=== PATIENT | male | born 1960 | race Caucasian/White ===

== ENCOUNTER 2023-03-18 02:14 | Day surgery (SDC) | payer OTHER, SELFPAY ==
[2023-03-09 14:35] VITALS: BMI 35.0
--- NOTE | 2023-03-17 09:07 | PM.HPGS ---
History of Present Illness History of Present Illness Consent: Risks, benefits, and alternatives have been discussed and questions answered. Patient agrees to proceed with procedure. Chief complaint: neoplasm screening Narrative: Israel Burrell is a 62 year old male was last colonoscopy was 10 years ago, is referred for colon cancer screening. Review of Systems Review of Systems: All systems reviewed & are unremarkable except as noted in HPI and below PMFSH Past Medical History Medical History Anxiety Chronic neck pain Depression Dyslipidemia Essential (primary) hypertension Obesity GEORGE (obstructive sleep apnea) Recurrent herpes labialis Surgical History Surgical History History of eye surgery (~1994) Left eye - correction for lazy eye Family History Family History Other Carcinoma of colon Family history of lung cancer Social History Social History Smoking status: Never smoker Second hand tobacco smoke exposure: No Alcohol intake: current Alcohol use details: 1 glass of liquor consumed occansionally Substance use: never Substance use type: does not use Lack of Transportation: No Lack of Food: Never True Current Housing: I Have Housing Concerned About Future Housing: No Difficulty Paying Gas/Electric Bills: No Difficulty Paying for Meds: No Currently Unemployed: No Education: Master's Degree or Higher Difficulty w/ Childcare or Family Care: No Living arrangements: with family Occupation/Education: retired Spiritual care concerns: No Meds Home Medications and Allergies Home Medications Medication Instructions Recorded Confirmed Type valacyclovir 1 gram tablet 2,000 mg PO BID PRN cold sores #30 07/16/21 03/09/23 Rx tabs naproxen 500 mg tablet 500 mg PO BID PRN pain #180 tabs 03/18/22 03/09/23 Rx alprazolam 0.25 mg tablet 0.25 mg PO BID PRN anxiety #180 09/08/22 03/09/23 Rx tabs lisinopril 20 1 tablet PO DAILY #90 tabs 10/26/22 03/09/23 Rx mg-hydrochlorothiazide 25 mg tablet hyoscyamine sulfate 0.125 mg 0.125 mg PO QID PRN dyspepsia #30 12/01/22 03/09/23 Rx sublingual tablet tabs cholecalciferol (vitamin D3) 50 50 mcg PO DAILY #90 tabs 01/24/23 03/09/23 Rx mcg (2,000 unit) tablet paroxetine HCl 20 mg tablet 20 mg PO DAILY #90 tabs 03/02/23 03/09/23 Rx clindamycin phosphate 1 % topical 1 applic topical DAILY PRN Rash 03/09/23 03/09/23 History gel cyanocobalamin (vitamin B-12) 1,000 mcg sublingual DAILY 03/09/23 03/09/23 History 1,000 mcg sublingual tablet Allergies Allergy/AdvReac Type Severity Reaction Status Date / Time minocycline Allergy Mild Rash Verified 03/18/23 07:46 Exam Const: General: alert Orientation/consciousness: patient oriented x3 Resp: Auscultation: clear to auscultation bilaterally Cardio: Rhythm: regular rhythm GI: GI Palp: Yes Soft to palpation and No Tenderness to palpation present (GI) Neuro: General: patient oriented x3 Assessment and Plan Assessment and plan (1) Colon cancer screening: Code(s): Z12.11 - Encounter for screening for malignant neoplasm of colon Status: Acute Assessment and Plan: Colonoscopy with possible biopsy or polypectomy or cautery or injection of substances.
--- NOTE | 2023-03-18 07:33 | WPDANESEPPF ---
Anes - Initial Pre Proc Eval Procedure: Operation Date: 03/18/23 08:30 Proposed Procedures p Screening Colonoscopy - Alok Marte MD Date/Time: 03/18/23 07:33 Surgeon: Alok Marte MD Pre Op Diagnosis: neoplasm screening Patient Data Age: 62 Gender: M Height: 1.8 m Weight: 114 kg Allergies Allergy/AdvReac Type Severity Reaction Status Date / Time minocycline Allergy Mild Rash Verified 03/18/23 07:46 Home Medications Medication Instructions Recorded Confirmed Type valacyclovir 1 gram tablet 2,000 mg PO BID PRN cold sores #30 07/16/21 03/09/23 Rx tabs naproxen 500 mg tablet 500 mg PO BID PRN pain #180 tabs 03/18/22 03/09/23 Rx alprazolam 0.25 mg tablet 0.25 mg PO BID PRN anxiety #180 09/08/22 03/09/23 Rx tabs lisinopril 20 1 tablet PO DAILY #90 tabs 10/26/22 03/09/23 Rx mg-hydrochlorothiazide 25 mg tablet hyoscyamine sulfate 0.125 mg 0.125 mg PO QID PRN dyspepsia #30 12/01/22 03/09/23 Rx sublingual tablet tabs cholecalciferol (vitamin D3) 50 50 mcg PO DAILY #90 tabs 01/24/23 03/09/23 Rx mcg (2,000 unit) tablet paroxetine HCl 20 mg tablet 20 mg PO DAILY #90 tabs 03/02/23 03/09/23 Rx clindamycin phosphate 1 % topical 1 applic topical DAILY PRN Rash 03/09/23 03/09/23 History gel cyanocobalamin (vitamin B-12) 1,000 mcg sublingual DAILY 03/09/23 03/09/23 History 1,000 mcg sublingual tablet Patient hx anesthesia problems: none Family hx anesthesia problems: none Results Review: All pre-operative results and documents have been reviewed as part of the pre-operative evaluation. [facility] Past Medical History Medical History Anxiety Chronic neck pain Depression Dyslipidemia Essential (primary) hypertension Obesity GEORGE (obstructive sleep apnea) Recurrent herpes labialis Surgical History Surgical History History of eye surgery (~1994) Left eye - correction for lazy eye Family History Family History Other Carcinoma of colon Family history of lung cancer Social History Social History Smoking status: Never smoker Second hand tobacco smoke exposure: No Alcohol intake: current Alcohol use details: 1 glass of liquor consumed occansionally Substance use: never Substance use type: does not use Lack of Transportation: No Lack of Food: Never True Current Housing: I Have Housing Concerned About Future Housing: No Difficulty Paying Gas/Electric Bills: No Difficulty Paying for Meds: No Currently Unemployed: No Education: Master's Degree or Higher Difficulty w/ Childcare or Family Care: No Living arrangements: with family Occupation/Education: retired Spiritual care concerns: No Anes - Eval Final PreProcedure Day of Procedure 03/18/23 07:33 Patient weight: obese Heart: regular rate and rhythm Lungs: clear to auscultation and normal air movement Airway: Mallampati scale class II Neurological: alert and oriented Last oral intake: >/= 8 hours ASA classification: III Emergent: no Anesthetic plan: proceed Anesthesia type and monitoring: general GIVS Results Review: All pre-operative results and documents have been reviewed as part of the pre-operative evaluation. Informed Consent: The patient's anesthetic plan and its attendant risks and benefits were discussed with the patient/family/POA. Questions were solicited and answers provided to the satisfaction of the patient/family/POA.
[2023-03-18] MEDS: LACTATED RINGERS 1,000 ML 150 ML IV CONT (07:45)
[2023-03-18 07:47] VITALS: BP 134/86; PULSE 72; RESP 18; TEMP 36.3; O2SAT 97
[2023-03-18 08:41] VITALS: BP 108/73; PULSE 52; RESP 18; O2SAT 97
[2023-03-18 08:51] VITALS: BP 120/80; PULSE 56; RESP 19; O2SAT 96
[2023-03-18 09:01] VITALS: BP 117/87; PULSE 60; RESP 20; O2SAT 96
== END 2023-03-18 09:11 | disposition home or self-care (01) ==
PROVIDERS: PCP Family Medicine; Visit Provider Internal Medicine Gastroenterology
PROC: 0DJD8ZZ Inspection of Lower Intestinal Tract, Via Natural or Artificial Opening Endoscopic (ICD-10-PCS; CPT 45378; principal; 2023-03-18 08:30)
DX: Z12.11 Encounter for screening for malignant neoplasm of colon (principal); D12.8 Benign neoplasm of rectum; K57.30 Diverticulosis of large intestine without perforation or abscess without bleeding; I10 Essential (primary) hypertension; E78.5 Hyperlipidemia, unspecified; G47.33 Obstructive sleep apnea (adult) (pediatric); B00.1 Herpesviral vesicular dermatitis; F41.9 Anxiety disorder, unspecified; E66.9 Obesity, unspecified; Z68.34 Body mass index [BMI] 34.0-34.9, adult
CPT/HCPCS: 45385; 88305; J2704; J7120

== ENCOUNTER 2023-09-27 08:07 | Outpatient (CLI) | payer OTHER, SELFPAY ==
--- NOTE | ~2023-09-27 | XR_ITS ---
EXAMINATION: XR barium swallow DATE: 09/27/2023 09:18 INDICATION: Dysphagia TECHNIQUE: The patient drank thick barium, gas-producing crystals, and thin barium. Fluoroscopic spot radiographs of the hypopharynx and esophagus were obtained. Fluoroscopy exposure time was 1.7 minut es. COMPARISON: None. FINDINGS: The pharynx is symmetric and without evidence of mass lesion or mucosal irregularity. The e sophagus is normal without mass or stricture. Esophageal motility is normal. There is no hiatal herni a. There was no gastroesophageal reflux with provocative maneuvers. IMPRESSION: 1. Normal esophagram/barium swallow study. Reviewed, dictated and finalized at location A. [employer]
== END 2023-09-27 08:08 | disposition home or self-care (01) ==
PROVIDERS: PCP Family Medicine; Visit Provider Internal Medicine Gastroenterology
DX: R13.10 Dysphagia, unspecified (principal)
CPT/HCPCS: 74220